=== PATIENT | male | born 1940 | race Caucasian/White ===

== ENCOUNTER → 2019-01-08 | Outpatient (CLI) | payer MEDICARE ==
[2019-01-08 13:14] LABS: BASOPHILS % (AUTO) 0 % (0-10); EOSINOPHILS # (AUTO) 0.2 10^3/uL (0.0-0.3); EOSINOPHILS % (AUTO) 2 % (0-10); HEMATOCRIT 41 % (40-54); HEMOGLOBIN 13.8 G/DL (13.3-17.7); LYMPHOCYTES # (AUTO) 1.4 X 10^3 (1.0-4.0); LYMPHOCYTES % (AUTO) 16 % (12-44); MEAN CORPUSCULAR HEMOGLOBIN 32 PG (25-34); MEAN CORPUSCULAR HGB CONC 34 G/DL (32-36); MEAN CORPUSCULAR VOLUME 95 FL (80-99); MEAN PLATELET VOLUME 11.3 FL (7.4-10.4); MONOCYTES # (AUTO) 0.7 X 10^3 (0.0-1.0); MONOCYTES % (AUTO) 9 % (0-12); NEUTROPHILS # (AUTO) 6.3 X 10^3 (1.8-7.8); NEUTROPHILS % (AUTO) 73 % (42-75); PLATELET COUNT 214 10^3/uL (130-400); RED CELL DISTRIBUTION WIDTH 12.8 % (10.0-14.5); WHITE BLOOD COUNT 8.6 10^3/uL (4.3-11.0)
[2019-01-08 13:38] LABS: ALANINE AMINOTRANSFERASE 33 U/L (0-55); ALKALINE PHOSPHATASE 82 U/L (40-136); BILIRUBIN,TOTAL 0.7 MG/DL (0.1-1.0); BUN/CREATININE RATIO 19; CARBON DIOXIDE 25 MMOL/L (21-32); CHLORIDE 104 MMOL/L (98-107); CREATININE SERUM 0.93 MG/DL (0.60-1.30); GFR ESTIMATED > 60; GLUCOSE 92 MG/DL (70-105); POTASSIUM 3.9 MMOL/L (3.6-5.0); SODIUM 139 MMOL/L (135-145)
[2019-01-08 13:39] LABS: ALBUMIN 4.1 GM/DL (3.2-4.5)
[2019-01-08 14:29] LABS: BILIRUBIN,URINE NEGATIVE (NEGATIVE); CLARITY,URINE CLEAR; COLOR,URINE YELLOW; GLUCOSE, URINE (UA) NEGATIVE (NEGATIVE); KETONES,URINE NEGATIVE (NEGATIVE); LEUKOCYTE ESTERASE ,URINE NEGATIVE (NEGATIVE); NITRITE,URINE NEGATIVE (NEGATIVE); PH,URINE 5 (5-9); PROTEIN,URINE NEGATIVE (NEGATIVE); UROBILINOGEN,URINE NORMAL (NORMAL)
[2019-01-08 14:38] LABS: BACTERIA,URINE TRACE /HPF; WBC,URINE RARE /HPF
== END ==
LOC: LAB 12:47
PROVIDERS: ATTEND Internal Medicine
DX: E78.2 Mixed hyperlipidemia (principal); R35.1 Nocturia; I10 Essential (primary) hypertension
CPT/HCPCS: 36415; 80053; 81000; 83036; 84443; 85025

== ENCOUNTER → 2019-12-23 | Outpatient (CLI) | payer MEDICARE ==
[2019-12-23 11:55] LABS: ALANINE AMINOTRANSFERASE 18 U/L (0-55); ALBUMIN 4.2 GM/DL (3.2-4.5); ALKALINE PHOSPHATASE 107 U/L (40-136); BILIRUBIN,TOTAL 0.6 MG/DL (0.1-1.0); BUN/CREATININE RATIO 18; CALCIUM 9.8 MG/DL (8.5-10.1); CARBON DIOXIDE 27 MMOL/L (21-32); CHLORIDE 101 MMOL/L (98-107); CREATININE SERUM 0.94 MG/DL (0.60-1.30); GFR ESTIMATED > 60; GLUCOSE 101 MG/DL (70-105); POTASSIUM 4.1 MMOL/L (3.6-5.0); SODIUM 142 MMOL/L (135-145); TOTAL PROTEIN 7.3 GM/DL (6.4-8.2)
[2019-12-23 11:56] LABS: BASOPHILS % (AUTO) 0 % (0-10); EOSINOPHILS # (AUTO) 0.1 10^3/uL (0.0-0.3); EOSINOPHILS % (AUTO) 2 % (0-10); HEMATOCRIT 44 % (40-54); HEMOGLOBIN 14.7 G/DL (13.3-17.7); LYMPHOCYTES # (AUTO) 1.4 X 10^3 (1.0-4.0); LYMPHOCYTES % (AUTO) 21 % (12-44); MEAN CORPUSCULAR HEMOGLOBIN 32 PG (25-34); MEAN CORPUSCULAR HGB CONC 34 G/DL (32-36); MEAN CORPUSCULAR VOLUME 94 FL (80-99); MEAN PLATELET VOLUME 12.4 FL (7.4-10.4); MONOCYTES # (AUTO) 0.7 X 10^3 (0.0-1.0); MONOCYTES % (AUTO) 10 % (0-12); NEUTROPHILS # (AUTO) 4.5 X 10^3 (1.8-7.8); NEUTROPHILS % (AUTO) 67 % (42-75); PLATELET COUNT 200 10^3/uL (130-400); RED CELL DISTRIBUTION WIDTH 12.6 % (10.0-14.5); WHITE BLOOD COUNT 6.7 10^3/uL (4.3-11.0)
[2019-12-23 15:25] LABS: CHOLESTEROL 145 MG/DL (< 200); HDL CHOLESTEROL 45 MG/DL (40-60); TRIGLYCERIDES 103 MG/DL (<150); VLDL CHOLESTEROL 21 MG/DL (5-40)
[2019-12-23 15:49] LABS: FREE T4 (FREE THYROXINE) 0.76 NG/DL (0.70-1.48)
== END ==
LOC: LAB FS 10:10
PROVIDERS: ATTEND Internal Medicine
DX: E03.9 Hypothyroidism, unspecified (principal); R73.9 Hyperglycemia, unspecified; I10 Essential (primary) hypertension; Z13.6 Encounter for screening for cardiovascular disorders
CPT/HCPCS: 36415; 80053; 80061; 83036; 84439; 84443; 85025

== ENCOUNTER 2021-03-16 17:58 | Inpatient (IN) | payer MEDICARE ==
[~2021-03-16] VITALS: Ht 180 cm; Wt 121.5 kg
--- NOTE | 2021-03-16 18:25 | ED Lower Extremity ---
General Stated Complaint: R HIP PAIN Source: patient, EMS Exam Limitations: no limitations (MYRNA YOON APRN) History of Present Illness Date Seen by Provider: Mar 16, 2021 Time Seen by Provider: 18:22 Initial Comments To ER by [facility] from his home where he lives taking care of his disabled . He slipped in some dog urine on the floor causing him to fall landing on the right hip. Did not hit his head. He was unable to get up secondary to pain in the posterior right thigh. Primary care is Dr. Jackson. He takes medication for hypertension and hyperlipidemia. No anticoagulants. Onset: just prior to arrival Severity: moderate Pain/Injury Location: right hip, right leg Method of Injury: fell Modifying Factors: Worse With Movement (MYRNA YOON APRN) Allergies and Home Medications Allergies Coded Allergies: No Known Drug Allergies (Unverified , 03/16/21) Home Medications Atorvastatin Calcium 20 Mg Tablet, 20 MG PO HS, (Reported) Last Action: Continued Benazepril HCl 20 Mg Tablet, 20 MG PO HS, (Reported) Last Action: Converted Ibuprofen 200 Mg Capsule, 400-600 MG PO Q8H PRN for PAIN-MILD (1-4), (Reported) Last Action: Held Levothyroxine Sodium 50 Mcg Tablet, 50 MCG PO DAILY, (Reported) Last Action: Continued Meloxicam 15 Mg Tablet, 15 MG PO DAILY, (Reported) Last Action: Converted Niacinamide 500 Mg Tablet, 500 MG PO DAILY, (Reported) Last Action: Converted [place]-3 Fatty Acids/Fish Oil 1 Each Capsule, 1 EACH PO DAILY, (Reported) Last Action: Converted Omeprazole Magnesium 20 Mg Capsule.dr, 20 MG PO DAILY, (Reported) Last Action: Converted Triamterene/Hydrochlorothiazid 1 Each Tablet, 1 EA PO 1900, (Reported) TAKES AFTER DINNER Last Action: Converted Patient Home Medication List Home Medication List Reviewed: Yes (MYRNA YOON APRN) Review of Systems Constitutional: see HPI; No chills, No fever EENTM: see HPI Respiratory: no symptoms reported Cardiovascular: no symptoms reported Genitourinary: no symptoms reported Musculoskeletal: no symptoms reported Skin: no symptoms reported Psychiatric/Neurological: No Symptoms Reported (MYRNA YOON APRN) Physical Exam Vital Signs Vital Signs - First Documented 03/16/21 18:00 Temp 36.7 Pulse 68 Resp 18 B/P (MAP) 149/76 (100) Pulse Ox 97 (YARIEL STEPHENSON MD) Vital Signs Capillary Refill : (MYRNA YOON APRN) Height, Weight, BMI Height: '" Weight: lbs. oz. kg; BMI Method: General Appearance: WD/WN, no apparent distress, other (Alert and oriented GCS 15 very pleasant no distress. He is apparently uncomfortable during transfer from the EMS cot to our bed. Attempting to lift his leg up off the bed causes him pain. He rates that pain at 9 out of 10.) HEENT: PERRL/EOMI, normal ENT inspection Neck: non-tender, full range of motion Respiratory: no respiratory distress, no accessory muscle use Gastrointestinal: normal bowel sounds, non tender, soft Hips: bilateral hip non-tender, bilateral hip normal inspection, bilateral hip normal range of motion; right hip other (The right hip is nontender to palpation anteriorly and laterally. Nontender to palpation in the posterior right thigh. He has no pain with passive range of motion of the hip. However with active range of motion such as attempting to lift his foot off the bed he has uncontrollable pain rated at 9 out of 10. This pain is from the ischium down to the posterior aspect of the knee. Dorsalis pedis pulse is +2 bilaterally.) Legs: bilateral leg non-tender, bilateral leg normal inspection, bilateral leg normal range of motion Knees: bilateral knee non-tender, bilateral knee normal inspection, bilateral knee normal range of motion Ankles: bilateral ankle non-tender, bilateral ankle normal inspection, bilateral ankle normal range of motion Neurologic/Psychiatric: alert, normal mood/affect, oriented x 3 Skin: normal color, warm/dry (MYRNA YOON APRN) Progress/Results/Core Measures Results/Orders Lab Results Laboratory Tests Test 03/16/21 18:35 Range/Units White Blood Count 8.9 4.3-11.0 10^3/uL Red Blood Count 4.50 4.30-5.52 10^6/uL Hemoglobin 14.3 13.3-17.7 g/dL Hematocrit 43 40-54 % Mean Corpuscular Volume 96 80-99 fL Mean Corpuscular Hemoglobin 32 25-34 pg Mean Corpuscular Hemoglobin Concent 33 32-36 g/dL Red Cell Distribution Width 12.7 10.0-14.5 % Platelet Count 168 130-400 10^3/uL Mean Platelet Volume 12.1 9.0-12.2 fL Immature Granulocyte % (Auto) 0 % Neutrophils (%) (Auto) 75 42-75 % Lymphocytes (%) (Auto) 14 12-44 % Monocytes (%) (Auto) 9 0-12 % Eosinophils (%) (Auto) 2 0-10 % Basophils (%) (Auto) 0 0-10 % Neutrophils # (Auto) 6.6 1.8-7.8 10^3/uL Lymphocytes # (Auto) 1.2 1.0-4.0 10^3/uL Monocytes # (Auto) 0.8 0.0-1.0 10^3/uL Eosinophils # (Auto) 0.2 0.0-0.3 10^3/uL Basophils # (Auto) 0.0 0.0-0.1 10^3/uL Immature Granulocyte # (Auto) 0.0 0.0-0.1 10^3/uL Sodium Level 142 135-145 MMOL/L Potassium Level 4.2 3.6-5.0 MMOL/L Chloride Level 105 98-107 MMOL/L Carbon Dioxide Level 24 21-32 MMOL/L Anion Gap 13 5-14 MMOL/L Blood Urea Nitrogen 20 H 7-18 MG/DL Creatinine 1.01 0.60-1.30 MG/DL Estimat Glomerular Filtration Rate > 60 BUN/Creatinine Ratio 20 Glucose Level 109 H 70-105 MG/DL Calcium Level 9.6 8.5-10.1 MG/DL Corrected Calcium 9.4 8.5-10.1 MG/DL Total Bilirubin 0.7 0.1-1.0 MG/DL Aspartate Amino Transf (AST/SGOT) 18 5-34 U/L Alanine Aminotransferase (ALT/SGPT) 19 0-55 U/L Alkaline Phosphatase 80 40-136 U/L Total Protein 7.2 6.4-8.2 GM/DL Albumin 4.2 3.2-4.5 GM/DL (YARIEL STEPHENSON MD) Vital Signs/I&O 03/16/21 18:00 Temp 36.7 Pulse 68 Resp 18 B/P (MAP) 149/76 (100) Pulse Ox 97 03/17/21 00:00 Intake Total 400 ml Balance 400 ml (YARIEL STEPHENSON MD) Diagnostic Imaging Diagonstic Imaging: Xray Comments NAME: CALLY MINOR MED REC#: [id number] PT STATUS: REG ER : 1940 PHYSICIAN: MYRNA YOON APRN ADMIT DATE: 03/16/21/ER Draft Date of Exam:03/16/21 PELVIS WITH RIGHT HIP 2-3VIEWS EXAMINATION: Right hip unilateral 2 or 3 views (w/pelvis when done) HISTORY: pain COMPARISON: None available. FINDINGS: Pelvic alignment is normal. There is mild bilateral hip osteoarthritis. No fracture is seen. IMPRESSION: 1. No fracture seen in the pelvis or right hip. Dictated on workstation # [id number] Dict: 03/16/211923 Trans: 03/16/211925 [employer] [id number] Interpreted by: KIM CONTRERAS MD Electronically signed by: NAME: CALLY MINOR MED REC#: [id number] PT STATUS: REG ER : 1940 PHYSICIAN: MYRNA YOON APRN ADMIT DATE: 03/16/21/ER Draft Date of Exam:03/16/21 FEMUR, RIGHT, 2 VIEWS EXAMINATION: Right femur 2 or more views HISTORY: pain COMPARISON: None available. FINDINGS: Right femur alignment is normal. No fracture seen in the right femur. IMPRESSION: 1. No fracture in the right femur. Dictated on workstation # [id number] Dict: 03/16/211924 Trans: 03/16/211925 CV [id number] Interpreted by: KIM CONTRERAS MD Electronically signed by: (MYRNA YOON APRN) Departure Impression Primary Impression: Intractable right hip pain Disposition: 01 HOME, SELF-CARE Condition: Stable Departure-Patient Inst. Referrals: ABRAHAM JACKSON DO (PCP/Family) Primary Care Physician Attending physician note: I was physically present as attending physician in the emergency department during the care of this patient, but I did not participate directly in the care of this patient. (YARIEL STEPHENSON MD) MYRNA YOON APRN Mar 16, 2021 18:25 YARIEL STEPHENSON MD Mar 17, 2021 14:21
[2021-03-16 18:52] LABS: BASOPHILS % (AUTO) 0 % (0-10); EOSINOPHILS # (AUTO) 0.2 10^3/uL (0.0-0.3); EOSINOPHILS % (AUTO) 2 % (0-10); HEMATOCRIT 43 % (40-54); HEMOGLOBIN 14.3 g/dL (13.3-17.7); LYMPHOCYTES # (AUTO) 1.2 10^3/uL (1.0-4.0); LYMPHOCYTES % (AUTO) 14 % (12-44); MEAN CORPUSCULAR HEMOGLOBIN 32 pg (25-34); MEAN CORPUSCULAR HGB CONC 33 g/dL (32-36); MEAN CORPUSCULAR VOLUME 96 fL (80-99); MEAN PLATELET VOLUME 12.1 fL (9.0-12.2); MONOCYTES # (AUTO) 0.8 10^3/uL (0.0-1.0); MONOCYTES % (AUTO) 9 % (0-12); NEUTROPHILS # (AUTO) 6.6 10^3/uL (1.8-7.8); NEUTROPHILS % (AUTO) 75 % (42-75); PLATELET COUNT 168 10^3/uL (130-400); WHITE BLOOD COUNT 8.9 10^3/uL (4.3-11.0)
[2021-03-16 19:04] LABS: ALBUMIN 4.2 GM/DL (3.2-4.5); CHLORIDE 105 MMOL/L (98-107); POTASSIUM 4.2 MMOL/L (3.6-5.0); SODIUM 142 MMOL/L (135-145)
[2021-03-16 19:05] LABS: CALCIUM 9.6 MG/DL (8.5-10.1)
[2021-03-16 19:06] LABS: GLUCOSE 109 MG/DL (70-105); TOTAL PROTEIN 7.2 GM/DL (6.4-8.2)
[2021-03-16 19:08] LABS: BILIRUBIN,TOTAL 0.7 MG/DL (0.1-1.0); CARBON DIOXIDE 24 MMOL/L (21-32)
[2021-03-16 19:10] LABS: ALKALINE PHOSPHATASE 80 U/L (40-136); CREATININE SERUM 1.01 MG/DL (0.60-1.30); GFR ESTIMATED > 60
[2021-03-16 19:11] LABS: BUN/CREATININE RATIO 20
[2021-03-16 19:13] LABS: ALANINE AMINOTRANSFERASE 19 U/L (0-55)
--- NOTE | 2021-03-16 19:26 | Diagnostic Imaging Report ---
EXAMINATION: Right femur 2 or more views HISTORY: pain COMPARISON: None available. FINDINGS: Right femur alignment is normal. No fracture seen in the right femur. IMPRESSION: 1. No fracture in the right femur. Dictated by: Dictated on workstation # [id number]
--- NOTE | 2021-03-16 19:26 | Diagnostic Imaging Report ---
EXAMINATION: Right hip unilateral 2 or 3 views (w/pelvis when done) HISTORY: pain COMPARISON: None available. FINDINGS: Pelvic alignment is normal. There is mild bilateral hip osteoarthritis. No fracture is seen. IMPRESSION: 1. No fracture seen in the pelvis or right hip. Dictated by: Dictated on workstation # [id number]
--- NOTE | 2021-03-16 21:02 | Diagnostic Imaging Report ---
PROCEDURE: CT right lower extremity without contrast. TECHNIQUE: Axially acquired CT was obtained through the right lower extremity without intravenous contrast. Coronal and sagittal reformations were also performed. Auto Exposure Controls were utilized during the CT exam to meet ALARA standards for radiation dose reduction. INDICATION: Fall, right hip pain. COMPARISON: None available. FINDINGS: Right proximal femur shows no fracture. 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 There are subchondral cysts in the right acetabulum but no fracture is seen. Musculature is intact. Sciatic nerve is normal. Large stool ball is present in the rectum. No lymphadenopathy is seen. No drainable fluid collection or mass. IMPRESSION: 1. No fracture is seen in the right hip. 2. Moderate right hip joint osteoarthritis. Dictated by: Dictated on workstation # [id number]
[2021-03-16 21:42] VITALS: BP 153/67
[2021-03-16] MEDS ORDERED: ONDANSETRON 4 MG/2 ML (SDV) Z0FRAN IV PRN (22:00)
[2021-03-16] MEDS ORDERED: CATHETER FLUSH 10 ML SYR IV PRN (22:00)
[2021-03-16] MEDS: CATHETER FLUSH 10 ML SYR IV SCH (22:09)
[2021-03-16] MEDS: DOCUSATE SODIUM 100 MG (COLACE) CAP PO SCH (22:10)
[2021-03-16] MEDS: HYDROcodone/APAP 5 MG/325 MG (LORTAB) TAB PO PRN (22:51)
[2021-03-16 23:49] VITALS: BP 130/60
[2021-03-17 03:57] VITALS: BP 153/65
[2021-03-17] MEDS: CATHETER FLUSH 10 ML SYR IV SCH ×3 (05:15→20:30)
[2021-03-17] MEDS: HYDROcodone/APAP 5 MG/325 MG (LORTAB) TAB PO PRN ×2 (05:47→21:37)
--- NOTE | 2021-03-17 06:15 | History & Physical ---
History of Present Illness HPI/Chief Complaint CC: Fall with right leg pain History of present illness: This is an 80-year-old white male clinic patient of mine who has a past medical history of hypertension and hyperlipidemia who presented to the ER by ambulance from his house after he suffered a fall when he slipped on dog urine on the floor. He suffered an incapacitating injury with right leg pain thus had to call the ambulance. He was found to have no fracture of the hip or the femur but consistent with some sort of muscle tear of the hamstring making it impossible to ambulate. We will consult orthopedic surgery for confirmation and physical therapy. At the same time his fell and fractured her femur and due to the complexity of the fracture [facility] Source: patient Exam Limitations: no limitations Date Seen 03/17/21 Time Seen by a Provider: 11:00 Attending Physician Kaylen Coronel DO PCP Kaylen Coronel DO Referring Physician Date of Admission Mar 16, 2021 at 19:59 Home Medications & Allergies Home Medications Reviewed patient Home Medication Reconciliation performed by pharmacy medication reconciliations motorcycle service technician and/or nursing. Patients Allergies have been reviewed. Allergies Allergies Coded Allergies No Known Drug Allergies (Unverified03/16/21) Past Iswmgsp-Yegsdk-Evgbes Hx Past Med/Social Hx: Reviewed Nursing Past Med/Soc Hx, Reviewed and Corrections made Patient Social History Marrital Status: Employed/Student: retired (Occupational Therapy) Alcohol Use: Denies Use Recreational Drug Use: No Smoking Status: Never a Smoker Recent Foreign Travel: No Contact w/other who traveled: No Recent Hopitalizations: No Recent Infectious Disease Expo: No Past Medical History Cardiac: High Cholesterol, Hypertension History of Blood Disorders: No Review of Systems Constitutional: see HPI Musculoskeletal: joint pain, muscle pain, muscle stiffness, muscle cramps Physical Exam Physical Exam Vital Signs Vital Signs - First Documented 03/16/21 03/16/21 18:00 21:30 Temp 36.7 Pulse 68 Resp 18 B/P (MAP) 149/76 (100) Pulse Ox 97 O2 Delivery Room Air Capillary Refill : Less Than 3 Seconds Height, Weight, BMI Height: '" Weight: lbs. oz. kg; 36.41 BMI Method: General Appearance: No Apparent Distress, WD/WN Eyes: Bilateral Eye Normal Inspection, Bilateral Eye PERRL HEENT: PERRL/EOMI, Normal ENT Inspection, Pharynx Normal Neck: Full Range of Motion, Normal Inspection, Non Tender, Supple, Carotid Bruit Respiratory: Chest Non Tender, Lungs Clear, Normal Breath Sounds, No Accessory Muscle Use, No Respiratory Distress Cardiovascular: Regular Rate, Rhythm, No Edema, No Gallop, No JVD, No Murmur, Normal Peripheral Pulses Gastrointestinal: Normal Bowel Sounds, No Organomegaly, No Pulsatile Mass, Non Tender, Soft Back: Normal Inspection, No CVA Tenderness, No Vertebral Tenderness Extremity: Normal Capillary Refill, Normal Inspection, Normal Range of Motion (Except right leg due to pain and muscle spasms cannot ambulate), Non Tender, No Calf Tenderness, No Pedal Edema Neurologic/Psychiatric: Alert, Oriented x3, No Motor/Sensory Deficits, Normal Mood/Affect Skin: Normal Color, Warm/Dry Lymphatic: No Adenopathy Results Results/Procedures Labs Laboratory Tests 03/16/21 18:35 Patient resulted labs reviewed. Assessment/Plan Admission Diagnosis Assessment: Incapacitating pain of right leg status post fall Hypertension Hyperlipidemia Osteoarthritis Plan: Pain meds Lovenox for DVT prophylaxis PT OT Orthopedic surgery consult Admission Status: Inpatient Order (span 2 midnights) Reason for Inpatient Admission: Incapacitated cannot ambulate Diagnosis/Problems Diagnosis/Problems (1) fall/R. Hip mendez KAYLEN CORONEL DO Mar 17, 2021 06:15
[2021-03-17 08:00] VITALS: BP 129/60
[2021-03-17] MEDS: DOCUSATE SODIUM 100 MG (COLACE) CAP PO SCH ×2 (08:27→20:29)
[2021-03-17] MEDS ORDERED: OMEG1CAP58 PO (08:52)
[2021-03-17] MEDS ORDERED: OMEP-254 PO (08:52)
[2021-03-17] MEDS ORDERED: BENA20TA7 PO (08:52)
[2021-03-17] MEDS ORDERED: ATOR20TA66 PO (08:52)
[2021-03-17] MEDS ORDERED: TRIA1TAB3 PO (08:52)
[2021-03-17] MEDS ORDERED: IBUP-2185 PO (08:52)
[2021-03-17] MEDS ORDERED: MELO15TA39 PO (08:52)
[2021-03-17] MEDS ORDERED: LEVO-129 PO (08:52)
[2021-03-17] MEDS ORDERED: NIAC500T24 PO (08:52)
--- NOTE | 2021-03-17 10:21 | Physical Therapy Evaluation ---
PT Evaluation-General Medical Diagnosis Admission Date Mar 16, 2021 at 19:59 Medical Diagnosis: right hip pain Onset Date: Mar 16, 2021 Therapy Diagnosis Therapy Diagnosis: debility Precautions Precautions/Isolations: Fall Prevention, Standard Precautions Referral Physician: Homer Reason for Referral: Evaluation/Treatment Medical History Pertinent Medical History: HTN Current History slipped and fell in dog urine in home Reviewed History: Yes Social History Home: Single Level Current Living Status: Spouse Entry Into Home: Ramp Prior Prior Level of Function SCALE: Activities may be completed with or without assistive devices. 6-Iyrdwqmmgf-ijwitnm completes the activity by him/herself with no assistance from a helper. 5-Set-up or Clean-up Assistance-helper sets up or cleans up; patient completes activity. [place] assists only prior to or following the activity. 4-Supervision or Touching Assistance-helper provides verbal cues and/or touching/steadying and/or contact guard assistance as patient completes activity. Assistance may be provided throughout the activity or intermittently. 3-Partial/Moderate Assistance-helper does LESS THAN HALF the effort. [place] lifts, holds or supports trunk or limbs, but provides less than half the effort. 2-Substantial/Maximal Assistance-helper does MORE THAN HALF the effort. [place] lifts or holds trunk or limbs and provides more than half the effort. 9-Ravohzuoe-ylwfmd does ALL the effort. Patient does none of the effort to complete the activity. Or, the assistance of 2 or more helpers is required for the patient to complete the activity. If activity was not attempted, code reason: 7-Patient Refused. 9-Not Applicable-not attempted and the patient did not perform the activity before the current illness, exacerbation or injury. 10-Not Attempted due to Environmental Limitations-(lack of equipment, weather restraints, etc.). 88-Not Attempted due to Medical Conditions or Safety Concerns. Bed Mobility: 6 Transfers (B,C,W/C): 6 Gait: 6 Indoor Mobility (Ambulation): Independent Stairs: Independent Prior Devices Use: None director career services for spouse PT Evaluation-Current Subjective Patient reluctantly agrees to PT. Reports "cramping" of the right hamstring. Pain Numeric Pain Scale: 10-Worst Possible Pain Location: Right Location Body Site: Thigh Pain Description: Cramping Objective Patient Orientation: Normal For Age ROM/Strength ROM Lower Extremities bilateral LE WFL Strength Lower Extremities left LE 5/5 grossly all planes/right knee flexion 3/5 due to pain; knee flexion 5/5 Integumentary/Posture Integumentary refer to nursing notes Bowel Incontinence: No Bladder Incontinence: No Posture WFL Neuromuscular (Tone, Coordination, Reflexes) grossly intact Sensory Vision: Wears Glasses Hearing: Functional Sensation Right Lower Extremit: Intact Sensation Left Lower Extremity: Intact Transfers Roll Left to Right (QC): 6 Sit to Lying (QC): 6 Lying to Sitting/Side of Bed(Q: 6 Sit to Stand (QC): 4 Chair/Qhm-oz-Jnovh Xfer(QC): 4 Gait Does the Patient Walk?: Yes Mode of Locomotion: Walk Anticipated Mode of Locomotion: Walk Walk 10 feet (QC): 3 Walk 50 ft with 2 Turns(QC): 7 Walk 150 ft (QC): 7 Distance: 30' Gait Assistive Device: FWW Comments/Gait Description Patient yells with right hamstring cramping (PT unable to palpate cramping musculature) Balance Sitting Static: Normal Sitting Dynamic: Normal Standing Static: Fair Standing Dynamic: Fair Assessment/Needs 80 y.o. male, will be seen short term by skilled PT to address functional mobility to ensure safe return to home with spouse. Rehab Potential: Fair PT Short Term Goals Short Term Goals Time Frame: Mar 24, 2021 Roll Left & Right: 6 Sit to lyin Lying to sitting on side of be: 6 Sit to stand: 6 Chair/gto-ap-kqhhf transfer: 6 Walk 10 feet: 6 Walk 50 feet with two turns: 6 Walk 150 feet: 6 PT Plan Problem List Problem List: Activity Tolerance, Functional Strength, Balance, Gait, Transfer, Other (right hamstring pain) Treatment/Plan Treatment Plan: Continue Plan of Care Treatment Plan: Bed Mobility, Education, Functional Activity Mary, Functional Strength, Gait, Safety, Therapeutic Exercise, Transfers Treatment Duration: Mar 24, 2021 Frequency: 6 times per week Estimated Hrs Per Day: .25 hour per day Time/GCodes Time In: 824 Time Out: 837 Total Billed Treatment Time: 13 Total Billed Treatment 1 visit EVModC 13 min MANJU MARSH PT Mar 17, 2021 10:21
[2021-03-17] MEDS ORDERED: ENOXAPARIN 40 MG/0.4 ML (LOVENOX) SYR SC ONE (11:30)
[2021-03-17 11:40] VITALS: BP 125/61
[2021-03-17] MEDS: ENOXAPARIN 40 MG/0.4 ML (LOVENOX) SYR SC SCH (11:41)
--- NOTE | 2021-03-17 13:11 | Consultation ---
History of Present Illness History of Present Illness Patient Consulted On(lily/time) 03/17/21 13:06 Date Seen by Provider: Mar 17, 2021 Time Seen by Provider: 13:06 Reason for Visit: Right posterior thigh pain and spasm after fall History of Present Illness 80 yo retired male fell at home last evening. Reports he landed on right buttock with RLE extended forward. Denies hearing or feeling pop. Initially unable to stand and walk. He reports that over the last 12 hours with in house PT he has made significant progress with walker. No past history of injury of BLE trauma. He reports significant improvement in pain and spasticity as well. Allergies and Home Medications Allergies Coded Allergies: No Known Drug Allergies (Unverified , 03/16/21) Home Medications Atorvastatin Calcium 20 Mg Tablet, 20 MG PO HS, (Reported) Last Action: Continued Benazepril HCl 20 Mg Tablet, 20 MG PO HS, (Reported) Last Action: Converted Ibuprofen 200 Mg Capsule, 400-600 MG PO Q8H PRN for PAIN-MILD (1-4), (Reported) Last Action: Held Levothyroxine Sodium 50 Mcg Tablet, 50 MCG PO DAILY, (Reported) Last Action: Continued Meloxicam 15 Mg Tablet, 15 MG PO DAILY, (Reported) Last Action: Converted Niacinamide 500 Mg Tablet, 500 MG PO DAILY, (Reported) Last Action: Converted [place]-3 Fatty Acids/Fish Oil 1 Each Capsule, 1 EACH PO DAILY, (Reported) Last Action: Converted Omeprazole Magnesium 20 Mg Capsule.dr, 20 MG PO DAILY, (Reported) Last Action: Converted Triamterene/Hydrochlorothiazid 1 Each Tablet, 1 EA PO 1900, (Reported) TAKES AFTER DINNER Last Action: Converted Patient Home Medication List Home Medication List Reviewed: No Physical Exam-General Problems Physical Exam Vital Signs Vital Signs - First Documented 03/16/21 03/16/21 18:00 21:30 Temp 36.7 Pulse 68 Resp 18 B/P (MAP) 149/76 (100) Pulse Ox 97 O2 Delivery Room Air Capillary Refill : Less Than 3 Seconds Extremities: normal range of motion (Right hip IR 30 deg and ER 20. No pain with gentle rotation. Nontender hip capsule and greater troch.), non-tender (TTP throughout Right hamstring. Nontender posterior knee. Pain and spasm reproduced with attemped SLR passively with knee in extension.), normal inspection, no pedal edema, no calf tenderness, normal capillary refill, pelvis stable, calf tenderness, inflammation, pedal edema, slow capillary refill, swelling, other (Intact PF, DF and EHL) Assessment/Plan Assessment/Plan Admission Diagnosis/Plan Assessment: Right hamstring Strain Plan: Continue PT and progressive hamstring stretching program. Outpatient FU as needed with Jadiel KWOK in [facility] FRANCOISE DEY Mar 17, 2021 13:11
[2021-03-17 16:07] VITALS: BP 133/75
[2021-03-17] MEDS ORDERED: NON-FORMULARY MEDICATION 1 EA EA (Triamterene/Hydrochlorothiazid (Triamterene-Hctz 37.5-25 PO SCH (19:00)
[2021-03-17 20:14] VITALS: BP 144/72
[2021-03-17] MEDS: lisINopril 20 MG (PRINIVIL) TABLET PO SCH (20:29)
[2021-03-17] MEDS: TRIAMTERENE/HCTZ 75-50 (MAXZIDE,DYAZIDE) TABLET PO SCH (20:30)
[2021-03-17] MEDS ORDERED: NON-FORMULARY MEDICATION 1 EA EA (Benazepril HCl 20 MG) PO SCH (21:00)
[2021-03-17 23:59] VITALS: BP 130/74
[2021-03-18 04:42] VITALS: BP 103/66
[2021-03-18] MEDS: CATHETER FLUSH 10 ML SYR IV SCH ×3 (05:41→20:44)
--- NOTE | 2021-03-18 06:31 | Progress Note - Hospitalist ---
Subjective HPI/CC On Admission Date Seen by Provider: Mar 18, 2021 Time Seen by Provider: 11:30 CC: Fall with right leg pain History of present illness: This is an 80-year-old white male clinic patient of mine who has a past medical history of hypertension and hyperlipidemia who presented to the ER by ambulance from his house after he suffered a fall when he slipped on dog urine on the floor. He suffered an incapacitating injury with right leg pain thus had to call the ambulance. He was found to have no fracture of the hip or the femur but consistent with some sort of muscle tear of the hamstring making it impossible to ambulate. We will consult orthopedic surgery for confirmation and physical therapy. At the same time his fell and fractured her femur and due to the complexity of the fracture she was sent to [facility]. Subjective/Events-last exam Patient doing much better Wants to go home tomorrow Navigating with walker pretty well Check meds and labs Review of Systems Musculoskeletal: leg pain Objective Exam Vital Signs Vital Signs Date Time Temp Pulse Resp B/P (MAP) Pulse Ox O2 Delivery O2 Flow Rate FiO2 03/19/21 00:00 36.6 51 03/19/21 00:00 115/58 (77) 92 Room Air 03/18/21 16:34 18 Capillary Refill : Less Than 3 Seconds General Appearance: No Apparent Distress, WD/WN Respiratory: Lungs Clear Cardiovascular: Regular Rate, Rhythm Neurologic/Psychiatric: Alert, Oriented x3, No Motor/Sensory Deficits, Normal Mood/Affect Results/Procedures Lab Patient resulted labs reviewed. Assessment/Plan Assessment and Plan Assess & Plan/Chief Complaint Assessment: Severe right hamstring tear suffered in fall Hypertension Hyperlipidemia Plan: PT and OT Ambulate Pain control Diagnosis/Problems Diagnosis/Problems (1) fall/R. Hip mendez ABRAHAM JACKSON DO Mar 18, 2021 06:31
[2021-03-18] MEDS: LEVOTHYROXINE 50 MCG (LEVOTHROID) TAB PO SCH (06:32)
[2021-03-18 08:00] VITALS: BP 112/68
[2021-03-18] MEDS: DOCUSATE SODIUM 100 MG (COLACE) CAP PO SCH ×2 (08:16→21:09)
[2021-03-18] MEDS: NIACIN 500 MG TABLET PO SCH (08:17)
[2021-03-18] MEDS: OMEGA 3 (FISH OIL) 1000 MG CAP PO SCH (08:17)
[2021-03-18] MEDS: MELOXICAM 7.5 MG (MOBIC) TABLET PO SCH (08:17)
[2021-03-18] MEDS: PANTOPRAZOLE 20 MG TABLET (PROTONIX) PO SCH (08:17)
[2021-03-18] MEDS ORDERED: NON-FORMULARY MEDICATION 1 EA EA (Niacinamide (Niacin) 500 MG) PO SCH (09:00)
[2021-03-18] MEDS ORDERED: NON-FORMULARY MEDICATION 1 EA EA (Meloxicam 15 MG) PO SCH (09:00)
[2021-03-18] MEDS ORDERED: OMEPRAZOLE MAGNESIUM 20 MG PO SCH (09:00)
[2021-03-18] MEDS ORDERED: FLEET ENEMA ADULT 1 EA BTL ONE (09:56)
[2021-03-18] MEDS: ENOXAPARIN 40 MG/0.4 ML (LOVENOX) SYR SC SCH (12:23)
--- NOTE | 2021-03-18 12:30 | Physical Therapy Daily Note ---
PT Daily Note-Current Subjective Pt. in bed, agrees to ambulate. States he hopes to go home tomorrow and was able to put his heel down while walking at the end of the day yesterday. Transfers SCALE: Activities may be completed with or without assistive devices. 5-Wwfdpzkarg-hqxecbg completes the activity by him/herself with no assistance from a helper. 5-Set-up or Clean-up Assistance-helper sets up or cleans up; patient completes activity. [place] assists only prior to or following the activity. 4-Supervision or Touching Assistance-helper provides verbal cues and/or touching/steadying and/or contact guard assistance as patient completes activity. Assistance may be provided throughout the activity or intermittently. 3-Partial/Moderate Assistance-helper does LESS THAN HALF the effort. [place] lifts, holds or supports trunk or limbs, but provides less than half the effort. 2-Substantial/Maximal Assistance-helper does MORE THAN HALF the effort. [place] lifts or holds trunk or limbs and provides more than half the effort. 2-Vvgkvjtmu-gfhuxp does ALL the effort. Patient does none of the effort to complete the activity. Or, the assistance of 2 or more helpers is required for the patient to complete the activity. If activity was not attempted, code reason: 7-Patient Refused. 9-Not Applicable-not attempted and the patient did not perform the activity before the current illness, exacerbation or injury. 10-Not Attempted due to Environmental Limitations-(lack of equipment, weather restraints, etc.). 88-Not Attempted due to Medical Conditions or Safety Concerns. Lying to Sitting/Side of Bed(Q: 6 Sit to Stand (QC): 4 Gait Training Does the Patient Walk?: Yes Distance: 40 ft Walk 10 feet (QC): 4 Gait Persons Needed: 1 Gait Assistive Device: FWW decreased weight placed through the R LE and does not straighten knee for heel strike during gait Exercises Seated Therapy Exercises: Ankle pumps, Long arc quads Seated Reps: 15 Treatments gait training, review of seated exercises on R Assessment Current Status: Good Progress Able to increase ambulation today but continues to lack heel strike on the R and had 1 episode of 'cramping' in the hamstrings. Pt. seated in chair post session with call light and all needs met. PT Short Term Goals Short Term Goals Time Frame: Mar 24, 2021 Roll Left & Right: 6 Sit to lyin Lying to sitting on side of be: 6 Sit to stand: 6 Chair/nty-sl-bomqt transfer: 6 Walk 10 feet: 6 Walk 50 feet with two turns: 6 Walk 150 feet: 6 PT Plan Treatment/Plan Treatment Plan: Continue Plan of Care Treatment Plan: Bed Mobility, Education, Functional Activity Mary, Functional Strength, Gait, Safety, Therapeutic Exercise, Transfers Treatment Duration: Mar 24, 2021 Frequency: 6 times per week Estimated Hrs Per Day: .25 hour per day Time/GCodes Time In: 0843 Time Out: 0858 Total Billed Treatment Time: 15 Total Billed Treatment 1, GT 15' RUSSELL BLEVINS PT Mar 18, 2021 12:30
[2021-03-18 16:34] VITALS: BP 134/63
[2021-03-18] MEDS: TRIAMTERENE/HCTZ 75-50 (MAXZIDE,DYAZIDE) TABLET PO SCH (20:44)
[2021-03-18] MEDS: lisINopril 20 MG (PRINIVIL) TABLET PO SCH (20:44)
[2021-03-18] MEDS: HYDROcodone/APAP 5 MG/325 MG (LORTAB) TAB PO PRN (22:49)
[2021-03-19] VITALS: BP 115/58
[2021-03-19] MEDS: LEVOTHYROXINE 50 MCG (LEVOTHROID) TAB PO SCH (05:30)
[2021-03-19] MEDS: CATHETER FLUSH 10 ML SYR IV SCH ×2 (05:31→14:00)
[2021-03-19] MEDS: NIACIN 500 MG TABLET PO SCH (07:58)
[2021-03-19] MEDS: OMEGA 3 (FISH OIL) 1000 MG CAP PO SCH (07:58)
[2021-03-19] MEDS: DOCUSATE SODIUM 100 MG (COLACE) CAP PO SCH (07:58)
[2021-03-19] MEDS: PANTOPRAZOLE 20 MG TABLET (PROTONIX) PO SCH (07:59)
[2021-03-19] MEDS: MELOXICAM 7.5 MG (MOBIC) TABLET PO SCH (07:59)
[2021-03-19 08:33] VITALS: BP 145/66
[2021-03-19] MEDS ORDERED: ACHD5005 PO (10:54)
--- NOTE | 2021-03-19 10:55 | Discharge Summary ---
Discharge Summary Hospital Course Was the Problem List Reviewed?: Yes Problems/Dx: (1) fall/R. Hip mendez (2) Tear of right hamstring Hospital Course Date of Admission: Mar 16, 2021 at 19:59 Admission Diagnosis : Family Physician/Provider: Kaylen Coronel DO Date of Discharge: 03/19/21 Discharge Diagnosis: Fall at home, right hamstring tear, hypertension, hyperlipidemia Hospital Course: Patient is Short hospital course he was admitted due to incapacitating right leg pain negative CT scan for any hip fracture femur fracture patient was stabilized given pain medication PT and OT consulted along with orthopedics which confirmed a right hamstring tear severe in nature but he was able to use a walker with slow ambulation and patient was deemed stable for discharge to his daughters in [place] close to [facility] where his suffered a hip fracture at the same time that he fell at home with hamstring tear. Labs and Pending Lab Test: Home Meds Active Reported Ibuprofen 200 Mg Capsule 400-600 Mg PO Q8H PRN Niacin (Niacinamide) 500 Mg Tablet 500 Mg PO DAILY [place] 3 1,000 mg Softgel ([place]-3 Fatty Acids/Fish Oil) 1 Each Capsule 1 Each PO DAILY Omeprazole Magnesium 20 Mg Capsule.dr 20 Mg PO DAILY Benazepril HCl 20 Mg Tablet 20 Mg PO HS Triamterene-Hctz 37.5-25 mg Tb (Triamterene/Hydrochlorothiazid) 1 Each Tablet 1 Ea PO 1900 TAKES AFTER DINNER Atorvastatin Calcium 20 Mg Tablet 20 Mg PO HS Meloxicam 15 Mg Tablet 15 Mg PO DAILY Euthyrox (Levothyroxine Sodium) 50 Mcg Tablet 50 Mcg PO DAILY Assessment/Pt Instructions Dr. Coronel in 2 weeks Discharge Planning: <30 minutes discharge planning Discharge Instructions Discharge Diet: No Restrictions Activity as Tolerated: Yes Discharge Physical Examination Vital Signs Vital Signs Date Time Temp Pulse Resp B/P (MAP) Pulse Ox O2 Delivery O2 Flow Rate FiO2 03/19/21 08:33 36.0 56 18 145/66 (92) 92 Room Air General Appearance: No Apparent Distress, WD/WN Respiratory: Lungs Clear Cardiovascular: Regular Rate, Rhythm Neurologic/Psychiatric: Alert, Oriented x3, No Motor/Sensory Deficits, Normal Mood/Affect Allergies: Coded Allergies: No Known Drug Allergies (Unverified , 03/16/21) Discharge Summary Date of Admission Mar 16, 2021 at 19:59 Date of Discharge Discharge Date: Mar 19, 2021 Admission Diagnosis Assessment: Incapacitating pain of right leg status post fall Hypertension Hyperlipidemia Osteoarthritis Plan: Pain meds Lovenox for DVT prophylaxis PT OT Orthopedic surgery consult Discharge Diagnosis Assessment: Severe right hamstring tear suffered in fall Hypertension Hyperlipidemia Plan: PT and OT Ambulate Pain control (1) fall/R. Hip mendez KAYLEN CORONEL DO Mar 19, 2021 10:54
[2021-03-19] MEDS: ENOXAPARIN 40 MG/0.4 ML (LOVENOX) SYR SC SCH (11:50)
== END 2021-03-19 16:17 | disposition home or self-care (01) | DRG 538 ==
LOC: EDUNIT# 17:58 → ER 17:59 → 4TH 19:59
PROVIDERS: ADMIT Internal Medicine; ATTEND Internal Medicine
DX: S76.311A Strain of muscle, fascia and tendon of the posterior muscle group at thigh level, right thigh, initial encounter (principal); I10 Essential (primary) hypertension; E78.5 Hyperlipidemia, unspecified; M19.90 Unspecified osteoarthritis, unspecified site; E78.00 Pure hypercholesterolemia, unspecified; W18.30XA Fall on same level, unspecified, initial encounter
CPT/HCPCS: 12001; 36415; 73552; 73700; 80053; 85025

== ENCOUNTER 2021-08-24 14:32 | Emergency (ER) | payer MEDICARE ==
[~2021-08-24] VITALS: Ht 187 cm; Wt 100.0 kg
[~2021-08-24 14:32] MED LIST: ACHD5005 PO; ATOR20TA66 PO; BENA20TA7 PO; IBUP-2185 PO; LEVO-129 PO; MELO15TA39 PO; NIAC500T24 PO; OMEG1CAP58 PO; OMEP-254 PO; TRIA1TAB3 PO
--- NOTE | 2021-08-24 15:07 | Diagnostic Imaging Report ---
INDICATION: Fall, amputation at tip of left ring finger. TECHNIQUE: Single view left hand with two additional views of left 4th ring finger, 2:53 PM. CORRELATION STUDY: None. FINDINGS: There is soft tissue and bony amputation involving the distal phalanx of the ring finger. The soft tissues and bone are completely absent. The distal interphalangeal joint demonstrates degenerative change. Remaining osseous structures are otherwise intact and unremarkable. Likely small bone fragments at the tip of the fracture and soft tissue defect. IMPRESSION: Soft tissue and bony amputation involving the 4th distal phalanx. Dictated by: Dictated on workstation # [id number]
[2021-08-24] MEDS ORDERED: CEPHALEXIN 250 MG (KEFLEX) CAP PO ONE (15:15)
[2021-08-24] MEDS ORDERED: TETANUS,DIPTH,PERTUSS P/F (BOOSTRIX) 0.5 ML VIAL IM ONE (15:15)
[2021-08-24] MEDS ORDERED: HYDROcodone/APAP 5 MG/325 MG (LORTAB) TAB PO ONE (15:15)
--- NOTE | 2021-08-24 16:12 | ED Upper Extremity ---
General Chief Complaint: Upper Extremity Stated Complaint: FINGER AMPUTATION Nursing Triage Note: PT TRIPPED AGAINST HIS MAILBOX AND AMPUTATED THE TIP INCLUDING THE FINGERNAIL OF THE LEFT 4TH FINGER. PT HAS SKIN TEARS AND ABRASIONS TO THE BRIDGE OF HIS NOSE, THE RIGHT LOWER CHEEK SIDE OF HIS FACE, HIS RIGHT HAND HAS SKIN TEARS TO THE LATERAL SIDE OF THE 3RD FINGER, AND THE PALM OF HIS HAND. DENIES LOC. Source: patient Exam Limitations: no limitations History of Present Illness Date Seen by Provider: Aug 24, 2021 Time Seen by Provider: 15:00 Initial Comments Patient is an 88-year-old left-handed male who presents with accidental fall from standing. Patient tripped while going to the mail fell into the mailbox struck his face, denies loss of consciousness headache or neck pain. He has abrasions over his face, right hand and a tuft fracture involving his left ring finger. Injury occurred just prior to ED arrival. Patient is not on antico agulation therapy. Location Injury Occurred: Home Severity: moderate Pain/Injury Location: left 4th finger Method of Injury: incised Modifying Factors: Improves With Other Allergies and Home Medications Allergies Coded Allergies: No Known Drug Allergies (Unverified , 03/16/21) Patient Home Medication List Home Medication List Reviewed: Yes Atorvastatin Calcium (Atorvastatin Calcium) 20 Mg Tablet, 20 MG PO HS, (Reported) Entered as Reported by: PAWAN RANDALL on 03/17/21 08 Benazepril HCl (Benazepril HCl) 20 Mg Tablet, 20 MG PO HS, (Reported) Entered as Reported by: PAWAN RANDALL on 03/17/21 0852 Hydrocodone Bit/Acetaminophen (HYDROcodone/APAP 5 MG/325 MG TAB) 1 Tab Tab, 1 EA PO Q4H PRN for PAIN-MODERATE (5-7) Prescribed by: ABRAHAM JACKSON on 03/19/21 1054 Ibuprofen (Ibuprofen) 200 Mg Capsule, 400-600 MG PO Q8H PRN for PAIN-MILD (1-4), (Reported) Entered as Reported by: PAWAN RANDALL on 03/17/21 0852 Levothyroxine Sodium (Euthyrox) 50 Mcg Tablet, 50 MCG PO DAILY, (Reported) Entered as Reported by: PAWAN RANDALL on 03/17/21 0852 Meloxicam (Meloxicam) 15 Mg Tablet, 15 MG PO DAILY, (Reported) Entered as Reported by: PAWAN RANDALL on 03/17/21851 Niacinamide (Niacin) 500 Mg Tablet, 500 MG PO DAILY, (Reported) Entered as Reported by: PAWAN RANDALL on 03/17/21851 [place]-3 Fatty Acids/Fish Oil ([place] 3 1,000 mg Softgel) 1 Each Capsule, 1 EACH PO DAILY, (Reported) Entered as Reported by: PAWAN RANDALL on 03/17/21851 Omeprazole Magnesium (Omeprazole Magnesium) 20 Mg Capsule.dr, 20 MG PO DAILY, (Reported) Entered as Reported by: PAWAN RANDALL on 03/17/21851 Triamterene/Hydrochlorothiazid (Triamterene-Hctz 37.5-25 mg Tb) 1 Each Tablet, 1 EA PO 1900, (Reported) Entered as Reported by: PAWAN RANDALL on 03/17/21851 Review of Systems Constitutional: see HPI EENTM: see HPI Respiratory: see HPI Cardiovascular: see HPI Gastrointestinal: see HPI Genitourinary: see HPI Musculoskeletal: see HPI Skin: see HPI Psychiatric/Neurological: See HPI Past Kxcrmyx-Kuwhrt-Jxzhxw Hx Patient Social History Tobacco Use?: No Use of E-Cig and/or Vaping dev: No Substance use?: No Alcohol Use?: No Pt feels they are or have been: No Immunizations Up To Date First/Initial COVID19 Vaccinat: December COVID19 Vaccination 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 oz. kg; 28.00 BMI Method: General Appearance: WD/WN, no apparent distress HEENT: other (Abrasions to nasal bridge) Neck: non-tender, full range of motion Respiratory: chest non-tender, lungs clear Hand: Left (Tuft fracture involving the left ring finger with exposed cancellous bone, abrasions to right hand) Progress/Results/Core Measures Results/Orders My Orders Orders - MATTHEW POLK DO Finger(S) (08/24/21 14:49) Hydrocodone/Apap 5/325 Tablet (Lortab 5 (08/24/21 15:15) Cephalexin Capsule (Keflex Capsule) (08/24/21 15:15) Dipht,Pertuss(Acell),Tet Adult (Boostrix (08/24/21 15:15) Medications Given in ED Current Medications Medications Dose Ordered Sig/Faith Route Start Time Stop Time Status Last Admin Dose Admin Acetaminophen/ Hydrocodone Bitart 1 ea ONCE ONCE PO 08/24/21 15:15 08/24/21 15:16 DC 08/24/21 15:11 1 EA Cephalexin HCl 500 mg ONCE ONCE PO 08/24/21 15:15 08/24/21 15:16 DC 08/24/21 15:11 500 MG Vital Signs/I&O 08/24/21 14:46 Temp 36.3 Pulse 78 Resp 18 B/P (MAP) 159/63 (95) Pulse Ox 94 O2 Delivery Room Air Blood Pressure Mean: 95 Departure Communication (Admissions) Left hand x-ray: Proximal distal phalanx fracture of fourth digit. Antibiotics given. Wound washed and bandaged. Patient accepted to ER per Dr. Marti for surgical repair. Impression Primary Impression: Open fracture of tuft of distal phalanx of finger Additional Impressions: Minor head injury Facial contusion Disposition: XFER SHT-TRM HOSP Condition: Stable Transfer Transfer Reason: Exceeds level of care Method of Transfer: Private Vehicle Departure-Patient Inst. Decision time for Depature: 16:11 Referrals: ABRAHAM JACKSON DO (PCP/Family) Primary Care Physician Patient Instructions: Muscle Spasms (DC) Add. Discharge Instructions: Please go to emergency department on discharge from the emergency department. Do not eat or drink. Upon arrival, notify triage desk that you have been accepted by Dr. Marti. All discharge instructions reviewed with patient and/or family. Voiced understanding. MATTHEW POLK DO Aug 24, 2021 16:12
[2021-08-24 16:18] VITALS: BP 159/63
== END 2021-08-24 16:19 | disposition short-term general hospital (02) ==
LOC: EDUNIT# 14:32 → ER FS 14:33
DX: S62.635B Displaced fracture of distal phalanx of left ring finger, initial encounter for open fracture (principal); S00.83XA Contusion of other part of head, initial encounter; S09.90XA Unspecified injury of head, initial encounter; S60.511A Abrasion of right hand, initial encounter; I10 Essential (primary) hypertension; E78.00 Pure hypercholesterolemia, unspecified; Z23 Encounter for immunization; Z79.899 Other long term (current) drug therapy; W22.8XXA Striking against or struck by other objects, initial encounter
CPT/HCPCS: 11010; 29130; 73140; 90471; 90715